=== PATIENT | female | born 1965 | race African-American/Black ===

== ENCOUNTER 2022-05-30 16:30 | Emergency (ER) | payer OTHER, SELFPAY ==
[2022-05-30] MEDS ORDERED: Ketorolac Tromethamine 60 MG/2 ML VIAL ONE (18:16)
== END 2022-05-30 19:13 | disposition home or self-care (01) ==
LOC: NAV ERS 16:30
DX: S33.5XXA Sprain of ligaments of lumbar spine, initial encounter (principal); S13.9XXA Sprain of joints and ligaments of unspecified parts of neck, initial encounter; G44.209 Tension-type headache, unspecified, not intractable; E10.9 Type 1 diabetes mellitus without complications; E78.00 Pure hypercholesterolemia, unspecified; I10 Essential (primary) hypertension; Z79.899 Other long term (current) drug therapy; V49.50XA Passenger injured in collision with unspecified motor vehicles in traffic accident, initial encounter
CPT/HCPCS: 70450; 72125; 72131; 96372; J1885